=== PATIENT | male | born 1995 | race African-American/Black ===

== ENCOUNTER 2022-04-21 08:49 | Emergency (ER) | payer MEDICAID ==
[~2022-04-21] VITALS: Ht 177.8 cm; Wt 90.0 kg
[2022-04-21] MEDS ORDERED: LORAZEPAM 2MG/ML CPJ IV ONE (09:00)
[2022-04-21] MEDS ORDERED: LEVETIRACETAM 1000MG PREMIX 100 ML IV ONE (09:30)
[2022-04-21 10:22] LABS: HEMATOCRIT. 52.5 % (42.0-52.0); MEAN CORPUSCULAR HEMOGLOBIN 30.4 pg (28.0-32.0); MEAN CORPUSCULAR VOLUME 93.8 fL (80.0-94.0); MEAN PLATELET VOLUME 8.2 fl (7.4-10.4); PLATELET 327 x1000/uL (130-400); RED BLOOD CELL COUNT 5.59 mill/uL (4.7-6.1); RED CELL DISTRIBUTION WIDTH 14.2 % (11.6-14.6)
[2022-04-21 10:30] LABS: CLARITY URINE CLOUDY (CLEAR); COLOR URINE YELLOW (YELLOW); KETONES URINE TRACE (NEGATIVE); LEUKOCYTE ESTERASE URINE NEGATIVE (NEGATIVE); NITRITE URINE NEGATIVE (NEGATIVE); OCCULT BLOOD URINE 2+ (NEGATIVE); PROTEIN URINE 2+ (NEGATIVE); SPECIFIC GRAVITY URINE 1.013 (1.005-1.030); UROBILINOGEN URINE 0.2 E.U./dL (0.2-1.0)
[2022-04-21 10:31] LABS: CHLORIDE 112 mEq/L (98-107)
[2022-04-21 10:49] LABS: *AMPHETAMINES SCREEN URINE NEGATIVE (NEGATIVE); *BARBITURATES SCREEN URINE NEGATIVE (NEGATIVE); *BENZODIAZEPINES SCREEN URINE NEGATIVE (NEGATIVE); *COCAINE SCREEN URINE NEGATIVE (NEGATIVE); CANNABINOID URINE SCREEN PRESUMTIVE POSITIVE (NEGATIVE); METHADONE URINE SCREEN NEGATIVE (NEGATIVE); OPIATES URINE SCREEN NEGATIVE (NEGATIVE); PHENCYCLIDINE URINE SCREEN NEGATIVE (NEGATIVE)
[2022-04-21 10:54] LABS: PLATELET ESTIMATE NORMAL
[2022-04-21 10:55] LABS: ETHANOL BLOOD < 10 mg/dL
[2022-04-21 14:21] VITALS: BP 120/83
== END 2022-04-21 17:43 | disposition short-term general hospital (02) ==
LOC: ER 09:09
DX: R56.9 Unspecified convulsions (principal); D72.829 Elevated white blood cell count, unspecified; D72.825 Bandemia
CPT/HCPCS: 36415; 71045; 80053; 80305; 80320; 81003; 82962; 84443; 85025; 93005; 96365; 96375; 99285; J1953; J2060; G0480

== ENCOUNTER 2022-06-19 09:47 | Emergency (ER) | payer MEDICAID, OTHER ==
[~2022-06-19] VITALS: Ht 172.7 cm; Wt 70.0 kg
[2022-06-19] MEDS ORDERED: LEVETIRACETAM 1000MG PREMIX 100 ML IV ONE (10:00)
[2022-06-19] MEDS ORDERED: SODIUM CHLORIDE 0.9% 1,000 ML IV ONE (10:00)
[2022-06-19 10:10] LABS: HEMATOCRIT. 47.6 % (42.0-52.0); HEMOGLOBIN. 16.5 g/dL (14.0-18.0); MEAN CORPUSCULAR HEMOGLOBIN 31.5 pg (28.0-32.0); MEAN CORPUSCULAR VOLUME 90.7 fL (80.0-94.0); MEAN PLATELET VOLUME 7.6 fl (7.4-10.4); PLATELET 285 x1000/uL (130-400); RED BLOOD CELL COUNT 5.25 mill/uL (4.7-6.1)
[2022-06-19 10:20] LABS: CHLORIDE 103 mEq/L (98-107)
[2022-06-19 10:27] LABS: ETHANOL BLOOD < 10 mg/dL
[2022-06-19] MEDS ORDERED: MIDAZOLAM HCL 2 MG/2 ML VIAL IV ONE (10:45)
[2022-06-19 11:07] LABS: VALPROIC ACID <3.0 ug/mL ug/mL (50-100)
[2022-06-19 11:08] LABS: CARBAMAZEPINE < 0.5 ug/mL (4-12); PHENOBARBITAL < 2.1 ug/mL (15.0-40.0)
[2022-06-19 11:38] LABS: CLARITY URINE CLEAR (CLEAR); COLOR URINE YELLOW (YELLOW); KETONES URINE TRACE (NEGATIVE); LEUKOCYTE ESTERASE URINE NEGATIVE (NEGATIVE); NITRITE URINE NEGATIVE (NEGATIVE); OCCULT BLOOD URINE TRACE (NEGATIVE); PROTEIN URINE 1+ (NEGATIVE); SPECIFIC GRAVITY URINE 1.009 (1.005-1.030); UROBILINOGEN URINE 0.2 E.U./dL (0.2-1.0)
[2022-06-19 12:04] LABS: *AMPHETAMINES SCREEN URINE NEGATIVE (NEGATIVE); *BARBITURATES SCREEN URINE NEGATIVE (NEGATIVE); *BENZODIAZEPINES SCREEN URINE NEGATIVE (NEGATIVE); *COCAINE SCREEN URINE NEGATIVE (NEGATIVE); CANNABINOID URINE SCREEN PRESUMTIVE POSITIVE (NEGATIVE); METHADONE URINE SCREEN NEGATIVE (NEGATIVE); OPIATES URINE SCREEN NEGATIVE (NEGATIVE); PHENCYCLIDINE URINE SCREEN NEGATIVE (NEGATIVE)
[2022-06-19 12:17] LABS: PLATELET ESTIMATE NORMAL
[2022-06-19 14:00] VITALS: BP 122/80
== END 2022-06-19 14:15 | disposition left against medical advice (07) ==
LOC: ER 10:02 → CANBEDREQ 06-20 00:17
DX: R56.9 Unspecified convulsions (principal); E87.2 Acidosis
CPT/HCPCS: 36415; 70450; 71045; 80053; 80156; 80165; 80184; 80185; 80305; 80320; 81003; 85025; 87426; 96365; 96375; 99285; J1953; J2250; J7030; G0480

== ENCOUNTER 2022-09-14 09:00 | Emergency (ER) | payer MEDICAID, OTHER ==
[~2022-09-14] VITALS: Ht 170.2 cm; Wt 71.0 kg
[2022-09-14] MEDS ORDERED: LEVETIRACETAM 500MG PREMIX 100 ML IV ONE (09:30)
[2022-09-14 10:03] LABS: HEMATOCRIT. 46.2 % (42.0-52.0); HEMOGLOBIN. 15.7 g/dL (14.0-18.0); MEAN CORPUSCULAR HEMOGLOBIN 30.8 pg (28.0-32.0); MEAN CORPUSCULAR VOLUME 90.5 fL (80.0-94.0); RED CELL DISTRIBUTION WIDTH 14.4 % (11.6-14.6)
[2022-09-14] MEDS ORDERED: LORAZEPAM 2MG/ML CPJ IV ONE (10:15)
[2022-09-14 10:37] LABS: CLARITY URINE CLOUDY (CLEAR); COLOR URINE YELLOW (YELLOW); KETONES URINE 2+ (NEGATIVE); LEUKOCYTE ESTERASE URINE NEGATIVE (NEGATIVE); NITRITE URINE NEGATIVE (NEGATIVE); OCCULT BLOOD URINE 3+ (NEGATIVE); PH URINE 5.5 (4.5-8.0); PROTEIN URINE 2+ (NEGATIVE); SPECIFIC GRAVITY URINE 1.016 (1.005-1.030); UROBILINOGEN URINE 0.2 E.U./dL (0.2-1.0)
[2022-09-14 10:48] LABS: CHLORIDE 100 mEq/L (98-107)
[2022-09-14 10:56] LABS: ETHANOL BLOOD < 10 mg/dL
[2022-09-14 11:03] LABS: *AMPHETAMINES SCREEN URINE NEGATIVE (NEGATIVE); *BARBITURATES SCREEN URINE NEGATIVE (NEGATIVE); *BENZODIAZEPINES SCREEN URINE PRESUMTIVE POSITIVE (NEGATIVE); *COCAINE SCREEN URINE NEGATIVE (NEGATIVE); CANNABINOID URINE SCREEN PRESUMTIVE POSITIVE (NEGATIVE); METHADONE URINE SCREEN NEGATIVE (NEGATIVE); OPIATES URINE SCREEN NEGATIVE (NEGATIVE); PHENCYCLIDINE URINE SCREEN NEGATIVE (NEGATIVE)
[2022-09-14 12:20] LABS: MEAN PLATELET VOLUME 8.3 fl (7.4-10.4); PLATELET ESTIMATE NORMAL
[2022-09-14 12:21] LABS: PLATELET 266 x1000/uL (130-400)
[2022-09-14] MEDS ORDERED: KEPP500 MT (12:57)
[2022-09-14] MEDS ORDERED: ACETAMINOPHEN 325MG TABLET PO ONE (14:00)
[2022-09-14 14:05] VITALS: BP 129/85
[2022-09-14] MEDS ORDERED: TETRACAINE 0.5% OPHTH DROPS 4ML BOTHEYE ONE (15:45)
[2022-09-14] MEDS ORDERED: FLUORESCEIN SODIUM 1MG/STRIP BOTHEYE ONE (15:45)
[2022-09-14] MEDS ORDERED: SODIUM CHLORIDE 0.9% 1,000 ML IV ONE (15:45)
[2022-09-14] MEDS ORDERED: KETOROLAC 30MG/ML VIAL IV ONE (17:45)
== END 2022-09-14 19:31 | disposition left against medical advice (07) ==
LOC: ER 09:24
DX: R56.9 Unspecified convulsions (principal)
CPT/HCPCS: 36415; 70450; 80053; 80305; 80320; 81003; 82962; 85025; 96361; 96365; 96375; 99284; J1953; J2060; J7030; G0480

== ENCOUNTER 2022-09-19 10:04 | Emergency (ER) | payer MEDICAID, OTHER ==
[~2022-09-19] VITALS: Ht 177.8 cm; Wt 82.0 kg
[~2022-09-19 10:04] MED LIST: KEPP500 MT
[2022-09-19] MEDS ORDERED: LIDOCAINE HCL 1% 20ML VIAL (Pyxis) INJ INFIL ONE (10:45)
[2022-09-19 10:56] LABS: BASOPHILS % 0.3 % (0.0-2.0); HEMATOCRIT. 37.6 % (42.0-52.0); HEMOGLOBIN. 12.8 g/dL (14.0-18.0); MEAN CORPUSCULAR HEMOGLOBIN 30.5 pg (28.0-32.0); MEAN PLATELET VOLUME 8.5 fl (7.4-10.4); MONOCYTES % 9.2 % (2.0-8.0); NEUTROPHILS % 81.5 % (40.0-76.0); PLATELET 257 x1000/uL (130-400); RED BLOOD CELL COUNT 4.18 mill/uL (4.7-6.1); RED CELL DISTRIBUTION WIDTH 14.4 % (11.6-14.6)
[2022-09-19 11:18] LABS: CHLORIDE 98 mEq/L (98-107)
[2022-09-19 11:29] LABS: ETHANOL BLOOD < 10 mg/dL
[2022-09-19] MEDS ORDERED: LORAZEPAM 2MG/ML CPJ IM ONE (11:45)
[2022-09-19] MEDS ORDERED: HALOPERIDOL LACTATE 5MG/ML VIAL IM ONE (11:45)
[2022-09-19] MEDS ORDERED: BACITRACIN ZINC OINT UDPKT TOP ONE (16:00)
[2022-09-19 20:57] VITALS: BP 136/85
== END 2022-09-19 21:14 | disposition home or self-care (01) ==
LOC: ER 10:04
DX: F91.8 Other conduct disorders (principal); S60.410A Abrasion of right index finger, initial encounter; S60.412A Abrasion of right middle finger, initial encounter; F20.9 Schizophrenia, unspecified; G40.909 Epilepsy, unspecified, not intractable, without status epilepticus; F15.10 Other stimulant abuse, uncomplicated; Z20.822 Contact with and (suspected) exposure to COVID-19; Z78.1 Physical restraint status; Z62.22 Institutional upbringing; X58.XXXA Exposure to other specified factors, initial encounter; Y93.89 Activity, other specified; Y92.89 Other specified places as the place of occurrence of the external cause; Y99.8 Other external cause status
CPT/HCPCS: 36415; 73130; 80053; 80307; 80320; 80329; 85025; 96372; 99284; C9803; J1630; J2060; U0003; U0005; Z7610; G0480

== ENCOUNTER 2023-07-22 18:28 | Emergency (ER) | payer OTHER ==
[~2023-07-22] VITALS: Ht 172.7 cm; Wt 84.0 kg
[~2023-07-22 18:28] MED LIST changes: +AMLO2.5T45 PO; +LEVE1000 MT; +SULF1TAB48 MT
[2023-07-22 18:32] VITALS: O2SAT 98
[2023-07-22] MEDS ORDERED: LEVETIRACETAM 500MG PREMIX 100 ML IV ONE (20:00)
[2023-07-22 20:37] LABS: BASOPHILS % 0.5 % (0.0-2.0); EOSINOPHILS % 1.1 % (0.0-5.0); HEMATOCRIT. 38.8 % (42.0-52.0); HEMOGLOBIN. 12.8 g/dL (14.0-18.0); LYMPHOCYTES % 28.6 % (20.0-50.0); MEAN CORPUSCULAR HEMOGLOBIN 27.9 pg (28.0-32.0); MEAN CORPUSCULAR HGB CONC 33.1 g/dL (31.0-37.0); MEAN CORPUSCULAR VOLUME 84.3 fL (80.0-94.0); MEAN PLATELET VOLUME 7.8 fl (7.4-10.4); MONOCYTES % 12.4 % (2.0-8.0); NEUTROPHILS % 57.4 % (40.0-76.0); PLATELET 327 x1000/uL (130-400); WHITE BLOOD COUNT 5.8 x1000/uL (4.5-11.0)
[2023-07-22 20:49] LABS: CHLORIDE 109 mEq/L (98-107); INDEX HEMOLYSI 1 (1-3); INDEX ICTERIC 1 (1-4); INDEX LIPEMIC 1 (1-3); POTASSIUM 3.9 mEq/L (3.5-5.1); SODIUM 137 mEq/L (136-145)
[2023-07-22 20:56] LABS: ALANINE AMINOTRANSFERASE 39 IU/L (13-61); ALBUMIN 3.9 g/dL (3.4-5.0); ASPARTATE AMINOTRANSFERASE 20 IU/L (15-37); BILIRUBIN TOTAL 0.2 mg/dL (0.1-1.0); CALCIUM 9.2 mg/dL (8.5-10.1); CARBON DIOXIDE 28 mEq/L (21-32); CREATININE 0.8 mg/dL (0.6-1.3); GLUCOSE 93 mg/dL (70-105); PROTEIN TOTAL 7.3 g/dL (6.0-8.3); UREA NITROGEN BLOOD 10 mg/dL (7-21)
[2023-07-22 21:37] VITALS: BP 118/70; PULSE 80; RESP 15; TEMP 99.1
== END 2023-07-22 21:40 | disposition home or self-care (01) ==
LOC: ER 18:28
DX: G40.909 Epilepsy, unspecified, not intractable, without status epilepticus (principal); F14.90 Cocaine use, unspecified, uncomplicated; F15.90 Other stimulant use, unspecified, uncomplicated
CPT/HCPCS: 99284; 96365; 80053; 85025; 36415; J1953

== ENCOUNTER 2023-12-17 16:33 | Emergency (ER) | payer MEDICAID, OTHER ==
[~2023-12-17] VITALS: Ht 182.9 cm; Wt 84.0 kg
[2023-12-17 16:47] VITALS: O2SAT 99
[2023-12-17] MEDS ORDERED: LEVETIRACETAM 500MG PREMIX 100 ML IV ONE (17:00)
[2023-12-17] MEDS ORDERED: SODIUM CHLORIDE 0.9% 1,000 ML IV ONE (17:00)
[2023-12-17 17:24] LABS: HEMATOCRIT. 46.4 % (42.0-52.0); HEMOGLOBIN. 14.6 g/dL (14.0-18.0); MEAN CORPUSCULAR HEMOGLOBIN 26.6 pg (28.0-32.0); MEAN CORPUSCULAR HGB CONC 31.4 g/dL (31.0-37.0); MEAN CORPUSCULAR VOLUME 84.8 fL (80.0-94.0); MEAN PLATELET VOLUME 7.8 fl (7.4-10.4); PLATELET 375 x1000/uL (130-400); RED BLOOD CELL COUNT 5.48 mill/uL (4.7-6.1); RED CELL DISTRIBUTION WIDTH 18.3 % (11.6-14.6); WHITE BLOOD COUNT 20.8 x1000/uL (4.5-11.0)
[2023-12-17 17:26] LABS: DIFFERENTIAL COMMENT 1
[2023-12-17 17:40] LABS: PLATELET ESTIMATE NORMAL
[2023-12-17 17:42] LABS: ALANINE AMINOTRANSFERASE 28 IU/L (10-49); ALBUMIN 4.8 g/dL (3.2-4.8); ASPARTATE AMINOTRANSFERASE 53 IU/L (<34); BILIRUBIN TOTAL 0.2 mg/dL (0.1-1.0); CALCIUM 9.3 mg/dL (8.7-10.4); CARBON DIOXIDE 17 mEq/L (21-32); CHLORIDE 106 mEq/L (98-107); CREATININE 1.5 mg/dL (0.6-1.3); GLUCOSE 157 mg/dL (70-105); POTASSIUM 5.2 mEq/L (3.5-5.1); PROTEIN TOTAL 8.2 g/dL (6.0-8.3); SODIUM 137 mEq/L (136-145); UREA NITROGEN BLOOD 8 mg/dL (9-23)
[2023-12-17 17:51] LABS: ETHANOL BLOOD < 10 mg/dL (<10)
[2023-12-17 19:25] LABS: PROTHROMBIN TIME 10.4 sec (9.6-11.0)
[2023-12-17 21:29] VITALS: BP 116/64; PULSE 93; RESP 17; TEMP 98.9
== END 2023-12-17 21:39 | disposition home or self-care (01) ==
LOC: ER 16:33
DX: G40.909 Epilepsy, unspecified, not intractable, without status epilepticus (principal); F20.9 Schizophrenia, unspecified; F14.90 Cocaine use, unspecified, uncomplicated; F15.90 Other stimulant use, unspecified, uncomplicated
CPT/HCPCS: 80053; 80320; 85025; 85610; 36415; 96365; 99284; J1953; J7030; Z7610; G0480

== ENCOUNTER 2023-12-18 04:19 | Emergency (ER) | payer MEDICAID, OTHER ==
[~2023-12-18] VITALS: Ht 175.3 cm; Wt 65.0 kg
[2023-12-18 04:31] VITALS: BP 138/93; TEMP 98.2; O2SAT 99
[2023-12-18 04:33] VITALS: PULSE 98; RESP 16
[2023-12-18 05:26] LABS: HEMATOCRIT. 46.8 % (42.0-52.0); HEMOGLOBIN. 14.9 g/dL (14.0-18.0); MEAN CORPUSCULAR HEMOGLOBIN 26.7 pg (28.0-32.0); MEAN CORPUSCULAR HGB CONC 31.8 g/dL (31.0-37.0); MEAN CORPUSCULAR VOLUME 83.9 fL (80.0-94.0); MEAN PLATELET VOLUME 7.9 fl (7.4-10.4); PLATELET 343 x1000/uL (130-400); RED BLOOD CELL COUNT 5.58 mill/uL (4.7-6.1); RED CELL DISTRIBUTION WIDTH 18.1 % (11.6-14.6)
[2023-12-18 05:39] LABS: ALANINE AMINOTRANSFERASE 28 IU/L (10-49); ALBUMIN 5.5 g/dL (3.2-4.8); ASPARTATE AMINOTRANSFERASE 59 IU/L (<34); BILIRUBIN TOTAL 0.3 mg/dL (0.1-1.0); CALCIUM 10.1 mg/dL (8.7-10.4); CARBON DIOXIDE 25 mEq/L (21-32); CHLORIDE 103 mEq/L (98-107); CREATININE 1.6 mg/dL (0.6-1.3); GLUCOSE 96 mg/dL (70-105); POTASSIUM 4.7 mEq/L (3.5-5.1); PROTEIN TOTAL 8.3 g/dL (6.0-8.3); SODIUM 135 mEq/L (136-145); UREA NITROGEN BLOOD 11 mg/dL (9-23)
[2023-12-18 05:50] LABS: ETHANOL BLOOD < 10 mg/dL (<10)
[2023-12-18 06:00] LABS: DIFFERENTIAL COMMENT 1
[2023-12-18 06:01] LABS: PLATELET ESTIMATE NORMAL
== END 2023-12-18 06:20 | disposition home or self-care (01) ==
LOC: ER 04:59
DX: R56.9 Unspecified convulsions (principal)
CPT/HCPCS: 36415; 80053; 80320; 85025; 99283; G0480

== ENCOUNTER 2024-01-17 18:22 | Emergency (ER) | payer MEDICAID ==
[~2024-01-17] VITALS: Ht 180.3 cm; Wt 73.0 kg
[2024-01-17 18:27] VITALS: O2SAT 100
[2024-01-17 19:15] LABS: ACETAMINOPHEN < 2 ug/mL (10-30); ALANINE AMINOTRANSFERASE 18 IU/L (10-49); ALBUMIN 5.3 g/dL (3.2-4.8); ASPARTATE AMINOTRANSFERASE 33 IU/L (<34); BILIRUBIN TOTAL 0.3 mg/dL (0.1-1.0); CALCIUM 9.7 mg/dL (8.7-10.4); CARBON DIOXIDE 28 mEq/L (21-32); CHLORIDE 105 mEq/L (98-107); GLUCOSE 88 mg/dL (70-105); POTASSIUM 3.6 mEq/L (3.5-5.1); PROTEIN TOTAL 8.2 g/dL (6.0-8.3); SODIUM 138 mEq/L (136-145); UREA NITROGEN BLOOD 10 mg/dL (9-23)
[2024-01-17 19:16] LABS: ETHANOL BLOOD < 10 mg/dL (<10)
[2024-01-17 19:26] LABS: BASOPHILS % 0.4 % (0.0-2.0); EOSINOPHILS % 0.8 % (0.0-5.0); HEMOGLOBIN. 14.9 g/dL (14.0-18.0); LYMPHOCYTES % 19.9 % (20.0-50.0); MEAN CORPUSCULAR HEMOGLOBIN 27.4 pg (28.0-32.0); MEAN CORPUSCULAR HGB CONC 33.1 g/dL (31.0-37.0); MEAN CORPUSCULAR VOLUME 82.6 fL (80.0-94.0); MEAN PLATELET VOLUME 8.1 fl (7.4-10.4); NEUTROPHILS % 69.9 % (40.0-76.0); PLATELET 298 x1000/uL (130-400); RED BLOOD CELL COUNT 5.44 mill/uL (4.7-6.1); RED CELL DISTRIBUTION WIDTH 17.6 % (11.6-14.6); WHITE BLOOD COUNT 8.7 x1000/uL (4.5-11.0)
[2024-01-18 08:05] LABS: GLUCOSE URINE NEGATIVE (NEGATIVE); KETONES URINE NEGATIVE (NEGATIVE)
[2024-01-18 08:28] LABS: CLARITY URINE CLEAR (CLEAR); COLOR URINE YELLOW (YELLOW); LEUKOCYTE ESTERASE URINE NEGATIVE (NEGATIVE); NITRITE URINE NEGATIVE (NEGATIVE); OCCULT BLOOD URINE NEGATIVE (NEGATIVE); PROTEIN URINE NEGATIVE (NEGATIVE); SPECIFIC GRAVITY URINE 1.023 (1.005-1.030)
[2024-01-18 09:01] LABS: *AMPHETAMINES SCREEN URINE NEGATIVE (NEGATIVE); *BARBITURATES SCREEN URINE NEGATIVE (NEGATIVE); *BENZODIAZEPINES SCREEN URINE NEGATIVE (NEGATIVE); *COCAINE SCREEN URINE NEGATIVE (NEGATIVE); CANNABINOID URINE SCREEN PRESUMPTIVE POSITIVE (NEGATIVE); ECSTASY MDMA SCREEN URINE NEGATIVE (NEGATIVE); METHADONE URINE SCREEN Neg (NEGATIVE); OPIATES URINE SCREEN NEGATIVE (NEGATIVE); PHENCYCLIDINE URINE SCREEN NEGATIVE (NEGATIVE)
[2024-01-18] MEDS: LEVETIRACETAM 500MG TABLET PO SCH (09:18)
[2024-01-18] MEDS: RISPERIDONE 0.5MG TABLET PO SCH (21:46)
[2024-01-19] MEDS: SORBITOL 70% SOLN 30ML PO ONE (07:00)
[2024-01-19] MEDS: DOCUSATE SODIUM 250MG CAPSULE PO ONE (07:00)
[2024-01-19] MEDS: ACETAMINOPHEN 325MG TABLET PO ONE (07:00)
[2024-01-19 21:15] VITALS: BP 141/95; PULSE 85; RESP 20; TEMP 98
== END 2024-01-19 21:31 ==
LOC: ER 18:22
DX: R45.851 Suicidal ideations (principal); G40.909 Epilepsy, unspecified, not intractable, without status epilepticus; F20.9 Schizophrenia, unspecified; F15.90 Other stimulant use, unspecified, uncomplicated; F19.90 Other psychoactive substance use, unspecified, uncomplicated; Z20.822 Contact with and (suspected) exposure to COVID-19
CPT/HCPCS: 36415; 80053; 80305; 80307; 80320; 80329; 81003; 85025; 87426; 99285; G0480